=== PATIENT | female | born 1965 | race Caucasian/White ===

== ENCOUNTER 2021-04-06 13:52 | Emergency (ER) | payer OTHER ==
[~2021-04-06] VITALS: Ht 162.6 cm; Wt 80.0 kg
--- NOTE | 2021-04-06 14:11 | PHYS DOC ---
Past History Past Medical History: Other (breast cancer) Past Surgical History: Other (bilateral mastectomy) General Adult EDM: Chief Complaint: NEAR SYCOPE HPI: HPI: Patient is a female who presented to ER for evaluation of dizziness episode. 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 Headache went away. Patient was at [facility] today to do her shopping, since then she had an episode like she was going to faint but she did not. She fell about dizzy at the time. Patient denies any blurry vision, no chest pain, no trouble b reathing, no weakness or numbness anywhere. Patient has history of breast cancer, she had bilateral mastectomy. She came into ER to evaluate make sure that she does not have anything wrong with her brain. Patient denies any history of diabetic, no history of hypertension. Patient denies any history of heart problem. At this time patient denies any headache, no blurry vision, no dizziness. Review of Systems: Review of Systems: Constitutional: Denies fever or chills Eyes: Denies change in visual acuity HENT: Denies nasal congestion or sore throat Respiratory: Denies cough or shortness of breath Cardiovascular: Denies chest pain or edema GI: Denies abdominal pain, nausea, vomiting, bloody stools or diarrhea : Denies dysuria Musculoskeletal: Denies back pain or joint pain Integument: Denies rash Neurologic: Denies headache, focal weakness or sensory changes Endocrine: Denies polyuria or polydipsia Lymphatic: Denies swollen glands Psychiatric: Denies depression or anxiety Allergies: Allergies: Allergies Coded Allergies Type Severity Reaction Last Updated Verified No Known Drug Allergies 04/06/21 No Physical Exam: PE: Constitutional: Well developed, well nourished, no acute distress, non-toxic appearance. [] HENT: Normocephalic, atraumatic, bilateral external ears normal, oropharynx moist, no oral exudates, nose normal. [] Eyes: PERRLA, EOMI, conjunctiva normal, no discharge. [] Neck: Normal range of motion, no tenderness, supple, no stridor. [] Cardiovascular:Heart rate regular rhythm, no murmur [] Lungs & Thorax: Bilateral breath sounds clear to auscultation [] Abdomen: Bowel sounds normal, soft, no tenderness, no masses, no pulsatile masses. [] Skin: Warm, dry, no erythema, no rash. [] Back: No tenderness, no CVA tenderness. [] Extremities: No tenderness, no cyanosis, no clubbing, ROM intact, no edema. [] Neurologic: Alert and oriented X 3, normal motor function, normal sensory function, no focal deficits noted. [] Psychologic: Affect normal, judgement normal, mood normal. [] EKG: EKG: EKG was done at 216, heart rate 65 bpm, normal sinus rhythm, no ST segment elevation. Normal axis. Radiology/Procedures: Radiology/Procedures: [][place] [id number] IMAGING REPORT Signed PATIENT: LUBNA MCDANIEL ACCOUNT: [id number] : 1965 LOCATION: ER AGE: 55 SEX: F EXAM STATUS: REG ER ORD. PHYSICIAN: PATTI VALENTIN DO REASON: SYNCOPAL EPISODE PROCEDURE: CT HEAD WO CONTRAST EXAM: Head CT without contrast. HISTORY: Syncope. TECHNIQUE: Computed tomographic images of the head were obtained without contrast. *One or more of the following individualized dose reduction techniques were utilized for this examination: 1. Automated exposure control. 2. Adjustment of the mA and/or kV according to patient size. 3. Use of iterative reconstruction technique. COMPARISON: None. FINDINGS: There is no acute or subacute extra-axial or intraparenchymal hemorrhage. There is no mass effect or midline shift. There is no hydrocephalus. The berrios-white matter differentiation pattern is intact. The visualized portions of the orbits, paranasal sinuses and mastoid air cells are unremarkable. No suspicious calvarial lesion is seen. IMPRESSION: No acute intracranial findings. Electronically signed by: Mary Hernandez MD (04/06/2021 2:49 PM) [id number] DICTATED AND SIGNED BY: MARY HERNANDEZ MD DATE: 04/06/21 1448 CC: DELANEY SARMIENTO DO; PATTI VALENTIN DO ~MTH0 0 Heart Score: C/O Chest Pain: N/A Risk Factors: Risk Factors: DM, Current or recent (<one month) smoker, HTN, HLP, family history of CAD, obesity. Risk Scores: Score 0 - 3: 2.5% MACE over next 6 weeks - Discharge Home Score 4 - 6: 20.3% MACE over next 6 weeks - Admit for Clinical Observation Score 7 - 10: 72.7% MACE over next 6 weeks - Early Invasive Strategies Course & Med Decision Making: Course & Med Decision Making Labs and Imaging studies reviewed. (See chart for details) Patient is a 55-year-old female who presented to ER for evaluation due to episode of near syncope. Patient had no symptoms when she came to ER. Patient denies any chest pain, no headache, no dizziness, no blurred vision. CT head and EKG were normal. No further work-up needed at this time. Dragon Disclaimer: [employer] Disclaimer: This electronic medical record was generated, in whole or in part, using a voice recognition dictation system. Departure Departure: Impression: Primary Impression: Near syncope Disposition: HOME / SELF CARE / HOMELESS Condition: IMPROVED Referrals: DELANEY SARMIENTO DO (PCP) Follow up with your doctor as needed this week. Patient Instructions: Near-Syncope Additional Instructions: Thank you for visiting our Emergency Department. We appreciate you trusting us with your care. If any additional problems come up don't hesitate to return to visit us. Please follow up with your primary care provider so they can plan additional care if needed and know about the problem that you had. If symptoms worsen come back to the Emergency Department. Any concerning symptoms that start such as chest pain, shortness of air, weakness or numbness on one side of the body, running high fevers or any other concerning symptoms return to the ER. PATTI VALENTIN DO April 06, 2021 14:11
--- NOTE | 2021-04-06 14:17 | EKG ---
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
--- NOTE | 2021-04-06 14:51 | RAD ---
EXAM: Head CT without contrast. HISTORY: Syncope. TECHNIQUE: Computed tomographic images of the head were obtained without contrast. *One or more of the following individualized dose reduction techniques were utilized for this examina tion: 1. Automated exposure control. 2. Adjustment of the mA and/or kV according to patient size. 3. Use of iterative reconstruction technique. COMPARISON: None. FINDINGS: There is no acute or subacute extra-axial or intraparenchymal hemorrhage. There is no mass effect or midline shift. There is no hydrocephalus. The berrios-white matter differentiation pattern is intact. The visualized portions of the orbits, paranasal sinuses and mastoid air cells are unremarkable. No s uspicious calvarial lesion is seen. IMPRESSION: No acute intracranial findings. Electronically signed by: Mary Cullen MD (04/06/2021 2:49 PM) [id number]
[2021-04-06 15:18] VITALS: BP 123/76
== END 2021-04-06 15:27 | disposition home or self-care (01) ==
LOC: ER 13:52
DX: R55 Syncope and collapse (principal); R51.9 Headache, unspecified
CPT/HCPCS: 70450; 93005; 99284-25